=== PATIENT | female | born 1975 | race Caucasian/White ===

== ENCOUNTER 2017-01-26 10:16 | Day surgery (SDC) | payer OTHER ==
[2017-01-25 12:43] VITALS: BMI 48.4
[2017-01-26] MEDS ORDERED: LIDOCAINE HCL/PF 2% SDV 5ML VIAL ONE (11:52)
[2017-01-26] MEDS ORDERED: PROPOFOL 40 ML ONE (11:52)
[2017-01-26 12:57] VITALS: TEMP 97.5
[2017-01-26 13:57] VITALS: BP 129/72; PULSE 78
--- NOTE | 2017-01-27 13:18 | PATH ---
Surgical Pathology Report Patient Name: NANCY MARTE [facility]. Rec. #: [id number] /Age/Gender: 1975 (Age: 41) / F Account: [id number] Location: ASU-ENDOSCOPY Taken: 01/26/2017 Received: 01/26/2017 Reported: 01/27/2017 Physicians: Abraham Tejada D.O. Specimen(s) Received A: MID TRANSVERSE COLON POLYP B: BX RIGHT COLON C: BX MID TRANSVERSE COLON D: POLYPS TRANSVERSE COLON E: POLYP SPLENIC FLEXURE COLON F: POLYP DESCENDING COLON G: POLYP SIGMOID H: POLYP RECTOSIGMOID Clinical History Diarrhea Colon polyps Final Diagnosis A. 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 B. COLON, RIGHT, BIOPSY: COLONIC MUCOSA WITH REACTIVE LYMPHOID AGGREGATE AND FOCAL MILD INCREASE IN EOSINOPHILS. NO EVIDENCE OF ACTIVE INFLAMMATION, SIGINIFICANT ARCHITECTURAL DISTORTION, GRANULOMATA OR DYSPLASIA; NO EVIDENCE OF MICROSCOPIC COLITIS. C. COLON, MID TRANSVERSE, BIOPSY: COLONIC MUCOSA WITH REACTIVE LYMPHOID AGGREGATES. NO EVIDENCE OF ACTIVE INFLAMMATION, SIGINIFICANT ARCHITECTURAL DISTORTION, GRANULOMATA OR DYSPLASIA; NO EVIDENCE OF MICROSCOPIC COLITIS. D. COLON, TRANSVERSE, POLYPS, POLYPECTOMY: FRAGMENTS OF HYPERPLASTIC-TYPE POLYP WITH FEATURES OR SESSILE SERRATED ADENOMA. E. COLON, SPLENIC FLEXURE, POLYP, POLYPECTOMY: FRAGMENTS OF TUBULAR ADENOMA. F. 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 G. 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 H. 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 Electronically Signed Kennedy Han M.D. Addendum Reported: 01/31/2017 Addendum Diagnosis Part E: DNA Mismatch Repair (MMR) protein expression [facility] [place] [id number] on block E1 and interpreted [facility] shows the following: Results: hMLH-1 DNA Mismatch Repair Protein: Intact nuclear expression hMSH-2 DNA Mismatch Repair Protein: Intact nuclear expression hMSH-6 DNA Mismatch Repair Protein: Intact nuclear expression PMS2 DNA Mismatch Repair Protein: Intact nuclear expression Interpretation: No defect in DNA Mismatch Repair (MMR) protein expression is identified by IHC. This result is usually seen in MSI-H stable tumors and is not associated with HNPCC (Alaniz syndrome). The case and this result were discussed with Dr. Abraham Tejada on 01/31/17. Kennedy Han M.D. Gross Description A. Received in formalin, labeled "polyp mid transverse colon" is a storey, polypoid portion of soft tissue measuring 0.7 cm in greatest dimension. The specimen is submitted in toto in one cassette. B. Received in formalin, labeled "biopsy right colon" are 3 storey, irregular portions of soft tissue ranging from 0.1-0.2 cm in greatest dimension. The specimens are submitted in toto in one cassette. C. Received in formalin, labeled "biopsy mid transverse colon" are 2 storey, irregular portions of soft tissue averaging 0.2 cm in greatest dimension. The specimens are submitted in toto in one cassette. D. Received in formalin, labeled "polyp transverse colon" are 3 storey, irregular portions of soft tissue ranging from 0.1-0.3 cm in greatest dimension. The specimens are submitted in toto in one cassette. E. Received in formalin, labeled "polyp splenic flexure" are 2 storey, irregular portions of soft tissue measuring 0.1 and 0.2 cm in greatest dimension. The specimens are submitted in toto in one cassette. F. Received in formalin, labeled "polyp descending colon" is a storey, irregular portion of soft tissue measuring 0.2 cm in greatest dimension. The specimen is submitted in toto in one cassette. G. Received in formalin, labeled "polyp sigmoid" are 2 storey, irregular portions of soft tissue averaging 0.2 cm in greatest dimension. The specimens are submitted in toto in one cassette. H. Received in formalin, labeled "rectosigmoid polyp" is a storey, polypoid portion of soft tissue measuring 0.6 cm in greatest dimension. The specimen is submitted in toto in one cassette. 01/26/201701/26/2017
== END 2017-01-26 13:56 | disposition home or self-care (01) ==
LOC: JASU-ENDO 10:16
PROVIDERS: ATTEND Internal Medicine Gastroenterology
PROC: 0DBN8ZX Excision of Sigmoid Colon, Via Natural or Artificial Opening Endoscopic, Diagnostic (ICD-10-PCS; 2017-01-26)
PROC: 0DBF8ZX Excision of Right Large Intestine, Via Natural or Artificial Opening Endoscopic, Diagnostic (ICD-10-PCS; 2017-01-26)
PROC: 0DBL8ZX Excision of Transverse Colon, Via Natural or Artificial Opening Endoscopic, Diagnostic (ICD-10-PCS; 2017-01-26)
PROC: 0DBM8ZX Excision of Descending Colon, Via Natural or Artificial Opening Endoscopic, Diagnostic (ICD-10-PCS; 2017-01-26)
PROC: 3E0H8GC Introduction of Other Therapeutic Substance into Lower GI, Via Natural or Artificial Opening Endoscopic (ICD-10-PCS; 2017-01-26)
PROC: 0DBL8ZX Excision of Transverse Colon, Via Natural or Artificial Opening Endoscopic, Diagnostic (ICD-10-PCS; principal; 2017-01-26 11:30)
DX: D12.7 Benign neoplasm of rectosigmoid junction (principal); D12.5 Benign neoplasm of sigmoid colon; D12.4 Benign neoplasm of descending colon; K63.5 Polyp of colon; D12.3 Benign neoplasm of transverse colon; K64.8 Other hemorrhoids; R19.7 Diarrhea, unspecified
CPT/HCPCS: 84703; 88305-TC

== ENCOUNTER 2017-12-05 08:35 | Day surgery (SDC) | payer OTHER ==
[2017-11-27 12:30] VITALS: BMI 47.3
[2017-12-05 09:37] LABS: BASO % 1.3 % (0-2.0); EOS % 3.5 % (0-4.5); HEMATOCRIT 39.7 % (32.4-45.2); LYMPH % 30.2 % (8-40); MCH 30.3 pg (25.7-33.7); MCHC 32.8 g/dl (32.0-36.0); MEAN CELL VOLUME 92.4 fl (80-96); MONO % 5.1 % (3.8-10.2); NEUT % 59.9 % (42.8-82.8); PLATELET COUNT 437 K/MM3 (134-434); RBC 4.29 M/mm3 (3.60-5.2); RDW 13.5 % (11.6-15.6); WHITE BLOOD COUNT 10.3 K/mm3 (4.0-10.0)
[2017-12-05 09:40] VITALS: TEMP 97.8
[2017-12-05 10:05] LABS: INR 0.97 (0.82-1.09)
[2017-12-05 13:17] LABS: GLUCOSE,CSF 63 mg/dL (50-80)
[2017-12-05 13:37] LABS: CSF APPEARANCE CLEAR; CSF COLOR COLORLESS; CSF WBC 0
[2017-12-05 14:37] VITALS: BP 110/67; PULSE 71
== END 2017-12-05 14:30 | disposition home or self-care (01) ==
LOC: JRADIR 08:35
PROVIDERS: ATTEND Specialist
PROC: 009U3ZX Drainage of Spinal Canal, Percutaneous Approach, Diagnostic (ICD-10-PCS; 2017-12-05)
PROC: B01BYZZ Fluoroscopy of Spinal Cord using Other Contrast (ICD-10-PCS; 2017-12-05)
PROC: 009U3ZX Drainage of Spinal Canal, Percutaneous Approach, Diagnostic (ICD-10-PCS; principal; 2017-12-05 10:00)
DX: R51 Headache (principal)
CPT/HCPCS: 36415; 62272; 82945; 84157; 84703; 85025; 85610; 87070; 87205

== ENCOUNTER 2018-10-01 20:13 | Emergency (ER) | payer OTHER ==
[2018-10-01 20:19] VITALS: PULSE 92; TEMP 98.7; BMI 49.6
--- NOTE | 2018-10-01 20:23 | PDOC ---
Rapid Medical Evaluation Chief Complaint: Lightheaded Time Seen by Provider: 10/01/18 20:17 Medical Evaluation: Allergies Allergy/AdvReac Type Severity Reaction Status Date / Time cat dander Allergy Intermediate Itching Verified 10/01/18 20:17 10/01/18 20:17 I have performed a brief in-person evaluation of this patient. The patient presents with a chief complaint of: dizziness/ lightheaded - started this AM , was coming and going but stronger now, denies fevers, palpitations or chestpain but c/o pins and needles to left arm. , Pertinent physical exam findings: A and O x 3, Ekg I have ordered the following: EKG The patient will proceed to the ED for further evaluation. 10/01/18 20:21 Discharge Disposition - Diagnosis Dizziness - Referrals - Patient Instructions - Post Discharge Activity
--- NOTE | 2018-10-01 20:31 | PDOC ---
History of Present Illness - General Chief Complaint: Lightheaded Stated Complaint: Chest Pain Time Seen by Provider: 10/01/18 20:17 - History of Present Illness Initial Comments: 10/01/18 20:30 Ms. Coker is a 43 yo female w/ pmh of HTN, migraines, and "elevated brain pressure" for which she is evaluated by neurology and treated with water pill who presents for evaluation of 1 week history of multiple episodes of nausea/ vomiting with diarrhea and fevers/chills. Patient reports symptoms stopped yesterday however today she began to have some dizziness with left sided chest pain with associated left arm parasthesias. The patient denies shortness of breath and headache. Denies dysuria, frequency, urgency and hematuria. Past History - Past Medical History Allergies/Adverse Reactions: Allergies Allergy/AdvReac Type Severity Reaction Status Date / Time cat dander Allergy Intermediate Itching Verified 10/01/18 20:17 No Known Drug Allergies Allergy Verified 10/01/18 20:47 Home Medications: Ambulatory Orders Amlodipine Besylate 10 mg PO DAILY 11/27/17 BUPROPion HCL "SR" [Wellbutrin Sr [Nf]] 150 mg PO BID 11/27/17 Diphenhydramine HCl [Benadryl -] 25 mg PO Q6H PRN 11/27/17 Nadolol 40 mg PO BID 11/27/17 Topiramate [Trokendi Xr] 100 mg PO BID 11/27/17 acetaZOLAMIDE [Diamox -] 1,500 mg PO DAILY 10/01/18 COPD: No Disorders: No HTN: Yes Thyroid Disease: No Other medical history: ?hydrocephalus - Surgical History Cholecystectomy: Yes - Suicide/Smoking/Psychosocial Hx Smoking History: Never smoked Have you smoked in the past 12 months: No Hx Alcohol Use: Yes (SOCIAL) Drug/Substance Use Hx: No Substance Use Type: None Hx Substance Use Treatment: No Review of Systems - Review of Systems Comments:: 10/01/18 20:32 GENERAL/CONSTITUTIONAL: +Fever/chills now resolved. No weakness. HEAD, EYES, EARS, NOSE AND THROAT: No change in vision. No ear pain or discharge. No sore throat. CARDIOVASCULAR: +Left sided chest pain w/out shortness of breath RESPIRATORY: No cough, wheezing, or hemoptysis. GASTROINTESTINAL: +1 week of nausea/vomiting/diarrhea as described (now resolved ). GENITOURINARY: No dysuria, frequency, or change in urination. MUSCULOSKELETAL: No joint or muscle swelling or pain. No neck or back pain. SKIN: No rash NEUROLOGIC: No headache, vertigo, loss of consciousness, or change in strength/ sensation. ENDOCRINE: No increased thirst. No abnormal weight change HEMATOLOGIC/LYMPHATIC: No anemia, easy bleeding, or history of blood clots. ALLERGIC/IMMUNOLOGIC: No hives or skin allergy. *Physical Exam - Vital Signs Last Vital Signs Temp Pulse Resp BP Pulse Ox 98.7 F 92 H 18 165/78 98 10/01/18 20:17 10/01/18 20:17 10/01/18 20:17 10/01/18 20:17 10/01/18 20:17 - Physical Exam Comments: 10/01/18 20:32 GENERAL: +Patient obese. Awake, alert, and fully oriented, in no acute distress HEAD: No signs of trauma, normocephalic, atraumatic EYES: PERRLA, EOMI, sclera anicteric, conjunctiva clear ENT: Auricles normal inspection, hearing grossly normal, nares patent, oropharynx clear without exudates. Moist mucosa NECK: Normal ROM, supple, no lymphadenopathy, JVD, or masses LUNGS: +Left chest wall TTP. No distress, speaks full sentences, clear to auscultation bilaterally HEART: Regular rate and rhythm, normal S1 and S2, no murmurs, rubs or gallops, peripheral pulses normal and equal bilaterally. ABDOMEN: +Nonspecific abdominal TTP. Soft, normoactive bowel sounds. No guarding , no rebound. No masses EXTREMITIES: Normal inspection, Normal range of motion, no edema. No clubbing or cyanosis. NEUROLOGICAL: Cranial nerves II through XII grossly intact. Normal speech, normal gait, no focal sensorimotor deficits SKIN: Warm, Dry, normal turgor, no rashes or lesions noted. Moderate Sedation - Procedure Monitoring Vital Signs: Procedure Monitoring Vital Signs Temperature 98.7 F 10/01/18 20:17 Pulse Rate 92 H 10/01/18 20:17 Respiratory Rate 18 10/01/18 20:17 Blood Pressure 165/78 10/01/18 20:17 O2 Sat by Pulse Oximetry (%) 98 10/01/18 20:17 ED Treatment Course - LABORATORY CBC & Chemistry Diagram: 10/01/18 21:15 10/01/18 21:15 Medical Decision Making - Medical Decision Making 10/01/18 22:46 Ms. Coker is a 43 yo female w/ pmh as described who presents for evaluation of symptoms concerning for electrolyte abnormality vs. cardiac process. Workup started accordingly w/ electrolytes plus CBC to r/o infectious process. Urine likewise sent postive for UTI as below. CXR negative. EKG normal. Patient denies needing pain medication at this time. No other concerning findings at this time. Patient remains tender in LUQ abdomen. CT abdomen/pelvis ordered for further evaluation. 10/01/18 23:35 Patient signed out to Dr. England for further care. Laboratory Results - last 24 hr 10/01/18 10/01/18 10/01/18 20:30 21:15 21:15 WBC 8.8 RBC 4.26 Hgb 13.2 Hct 38.6 MCV 90.6 MCH 31.0 MCHC 34.2 RDW 14.5 Plt Count 443 H MPV 7.9 D Absolute Neuts (auto) 5.1 Neutrophils % 57.7 Lymphocytes % 30.7 Monocytes % 8.3 Eosinophils % 2.5 Basophils % 0.8 Nucleated RBC % 0 Sodium 140 Potassium 4.3 Chloride 102 Carbon Dioxide 31 Anion Gap 8 BUN 9 Creatinine 1.0 Creat Clearance w eGFR > 60 Random Glucose 92 Calcium 8.3 L Total Bilirubin 0.6 AST 23 ALT 44 Alkaline Phosphatase 80 Creatine Kinase 55 Troponin I < 0.02 Total Protein 7.2 Albumin 3.1 L Urine Color Aggie Urine Appearance Cloudy Urine pH 6.0 Ur Specific [place] 1.028 Urine Protein 1+ H Urine Glucose (UA) Negative Urine Ketones Negative Urine Blood Negative Urine Nitrite Negative Urine Bilirubin Negative Urine Urobilinogen Negative Ur Leukocyte Esterase 2+ H Urine WBC (Auto) 17 Urine RBC (Auto) None Ur Epithelial Cells Many Urine Bacteria Rare Urine Mucus Moderate Urine HCG, Qual Negative *DC/Admit/Observation/Transfer Diagnosis at time of Disposition: Dizziness, Vomiting and diarrhea - Referrals - Patient Instructions - Post Discharge Activity
--- NOTE | 2018-10-01 20:34 | PDOC ---
Attending Attestation - Resident Resident Name: Carlton Ya - ED Attending Attestation I have performed the following: I have examined & evaluated the patient, The case was reviewed & discussed with the resident, I agree w/resident's findings & plan, Exceptions are as noted - HPI HPI: 10/02/18 20:47 Ms Coker is a 43 yo female w/ pmh of HTN, idiopathic intracranial hypertension who presents to the ER with a complaint of dizziness and chest pain Pt had had nausea/vomiting/diarrhea/fevers/chills x almost 1 week No recent travel No ill contacts No under cooked meat. GI symptoms stopped but then today around noon, she began to have dizziness (no vertigo) as well as left chest wall pain with associated left arm parasthesias Pain worsens with palpation of the chest wall No rash No cough No shortness of breath Pt has NO ataxia or difficulty walking She has no headaches No prior episodes like this No dysuria, no hematuria - Physicial Exam PE: 10/01/18 20:52 GENERAL: The patient is in no acute distress, A&O x 3 HEAD: Normal EYES: PERRLA, EOMI, sclera anicteric, conjunctiva clear. ENT: Ears normal, nares patent, oropharynx clear without exudates. Moist mucous membranes. NECK: Normal range of motion, supple without lymphadenopathy, JVD, or masses. LUNGS: Breath sounds equal, clear to auscultation bilaterally. No wheezes, and no crackles. HEART:Regular rate and rhythm, normal S1 and S2 without murmur, rub or gallop. ABDOMEN: Soft, no abd distention, LLQ tenderness to palpation EXTREMITIES: Normal range of motion, no edema. NEUROLOGICAL: Cranial nerves II through XII grossly intact. Normal speech. No focal neurological deficits. MUSCULOSKELETAL: Back non-tender to palpation, left chest wall tender to palpation SKIN: no rash - Medical Decision Making 10/01/18 20:55 EKG - SR rate of 77 bpm, axis nml, no st elevation, t wave flattening v2, v3, no pathologic q waves No prior ekg for comparison 10/01/18 20:57 Pt presents with complaint of chest pain, dizziness s/p 1 week of diarrhea and vomiting HEART score = 2 DD includes ACS (unlikely), PE (unlikely, low risk wells, PERC negative), Pneumonia, Pleurisy/effusion, musculoskeletal Mild LLQ tenderness (pt has had diarrhea for the past week, ? diverticulitis vs. Gastroenteritis - given vomiting as well) 10/01/18 20:59 10/01/18 21:32 Laboratory Tests 10/01/18 20:30 Urine Nitrite Negative Ur Leukocyte Esterase 2+ H Urine WBC (Auto) 17 Urine RBC (Auto) None Ur Epithelial Cells Many Urine HCG, Qual Negative 10/01/18 22:22 Laboratory Tests 10/01/18 21:15 WBC 8.8 Hgb 13.2 Hct 38.6 Plt Count 443 H 10/01/18 22:22 CXR - no pneumothorax, no effusion, cardiomediastinal silhouette nml Pt continued to have mild lower abdominal tenderness Chest wall pain has resolved CT abd and pelvis ordered Negative for colitis Will discharge to home Urine culture sent Will discharge to home Follow up with PMD Heart Score/ECG Review - History History: Slightly suspicious - Electrocardiogram EKG: Non specific repolarization disturbance - Age Age: </= 45 - Risk Factors Risk Factors Heart Score: Yes Hx Hypertension, Yes Hx Obesity Based on the list above the patient has:: 1-2 risk factors - Troponin Troponin: </= normal limit - Score Heart Score - Total: 2
[2018-10-01 20:56] LABS: URINE APPEARANCE CLOUDY; URINE BILIRUBIN NEGATIVE (<2.0 mg/dL); URINE COLOR AMBER; URINE GLUCOSE (UA) NEGATIVE (NEGATIVE); URINE KETONE NEGATIVE (NEGATIVE); URINE LEUK ESTERASE 2+ (NEGATIVE); URINE NITRITE NEGATIVE (NEGATIVE); URINE PROTEIN 1+ (NEGATIVE); URINE UROBILINOGEN NEGATIVE mg/dL (0.2-1.0)
[2018-10-01] MEDS ORDERED: ASPIRIN 81 MG CHEWABLE TABLETS PO ONE (20:56)
[2018-10-01] MEDS ORDERED: SODIUM CHLORIDE 1,000 ML IV STA (20:56)
[2018-10-01 20:57] LABS: HCG,QUALITATIVE URINE Negative
[2018-10-01] MEDS ORDERED: ASPIRIN 81 MG CHEWABLE TABLETS ONE (20:58)
[2018-10-01 21:12] LABS: EPI CELLS MANY /HPF (FEW); URINE BACTERIA RARE /hpf (NONE SEEN); URINE MUCUS MODERATE
[2018-10-01 21:47] LABS: BASO % 0.8 % (0-2.0); EOS % 2.5 % (0-4.5); HEMATOCRIT 38.6 % (32.4-45.2); HEMOGLOBIN 13.2 GM/dL (10.7-15.3); LYMPH % 30.7 % (8-40); MCHC 34.2 g/dl (32.0-36.0); MEAN CELL VOLUME 90.6 fl (80-96); MEAN PLT VOLUME 7.9 fl (7.5-11.1); MONO % 8.3 % (3.8-10.2); NEUT % 57.7 % (42.8-82.8); PLATELET COUNT 443 K/MM3 (134-434); RBC 4.26 M/mm3 (3.60-5.2); RDW 14.5 % (11.6-15.6); WHITE BLOOD COUNT 8.8 K/mm3 (4.0-10.0)
[2018-10-01 22:37] LABS: ALBUMIN 3.1 g/dl (3.4-5.0); ALK PHOS 80 U/L (45-117); ANION GAP 8 MMOL/L (8-16); BILIRUBIN,TOTAL 0.6 mg/dL (0.2-1); BLOOD UREA NITROGEN 9 mg/dL (7-18); CALCIUM 8.3 mg/dL (8.5-10.1); CHLORIDE 102 mmol/L (98-107); CO2 31 mmol/L (21-32); GLUCOSE,RANDOM 92 mg/dL (74-106); POTASSIUM 4.3 mmol/L (3.5-5.1); SGOT/AST 23 U/L (15-37); SGPT/ALT 44 U/L (13-61); SODIUM 140 mmol/L (136-145); TOT PROT 7.2 g/dl (6.4-8.2)
[2018-10-01 23:16] VITALS: BP 130/82
--- NOTE | 2018-10-02 00:30 | PDOC ---
*Physical Exam - Vital Signs Last Vital Signs Temp Pulse Resp BP Pulse Ox 98.7 F 92 H 18 130/82 98 10/01/18 20:17 10/01/18 20:17 10/01/18 20:17 10/01/18 20:53 10/01/18 20:53 ED Treatment Course - LABORATORY CBC & Chemistry Diagram: 10/01/18 21:15 10/01/18 21:15 - ADDITIONAL ORDERS Additional order review: Laboratory Results 10/01/18 10/01/18 21:15 20:30 Sodium 140 Potassium 4.3 Chloride 102 Carbon Dioxide 31 Anion Gap 8 BUN 9 Creatinine 1.0 Creat Clearance w eGFR > 60 Random Glucose 92 Calcium 8.3 L Total Bilirubin 0.6 AST 23 ALT 44 Alkaline Phosphatase 80 Creatine Kinase 55 Troponin I < 0.02 Total Protein 7.2 Albumin 3.1 L Urine Color Aggie Urine Appearance Cloudy Urine pH 6.0 Ur Specific [place] 1.028 Urine Protein 1+ H Urine Glucose (UA) Negative Urine Ketones Negative Urine Blood Negative Urine Nitrite Negative Urine Bilirubin Negative Urine Urobilinogen Negative Ur Leukocyte Esterase 2+ H Urine WBC (Auto) 17 Urine RBC (Auto) None Ur Epithelial Cells Many Urine Bacteria Rare Urine Mucus Moderate Urine HCG, Qual Negative 10/01/18 21:15 RBC 4.26 MCV 90.6 MCHC 34.2 RDW 14.5 MPV 7.9 D Neutrophils % 57.7 Lymphocytes % 30.7 Monocytes % 8.3 Eosinophils % 2.5 Basophils % 0.8 - Medications Given in the ED: ED Medications Discontinued Medications Generic Name Dose Route Start Last Admin Trade Name Freq PRN Reason Stop Dose Admin Aspirin 162 mg 10/01/18 20:56 10/01/18 21:23 Asa - PO 10/01/18 20:57 162 mg ONCE ONE Administration Sodium Chloride 1,000 mls @ 1,000 mls/hr 10/01/18 20:56 10/01/18 21:23 Normal Saline - IV 10/01/18 21:55 1,000 mls/hr ASDIR STA Administration Medical Decision Making - Medical Decision Making 10/02/18 00:27 UA tainted with many epithelial cells. Will obtain u culture and discharge. *DC/Admit/Observation/Transfer Diagnosis at time of Disposition: Dizziness, Vomiting and diarrhea - Discharge Dispostion Disposition: HOME Condition at time of disposition: Improved Decision to Admit order: No - Referrals Schedule a call back: Call back if urine culture positive. - Patient Instructions Printed Discharge Instructions: DI for Viral Gastroenteritis -- Adult Additional Instructions: Follow up with your primary care provider within the next 4 days. Come back to the emergency department for any new, worsening or concerning symptom. - Post Discharge Activity
--- NOTE | 2018-10-02 17:02 | EKG ---
Test Reason : Blood Pressure : / mmHG Vent. Rate : 077 BPM Atrial Rate : 077 BPM P-R Int : 142 ms QRS Dur : 070 ms QT Int : 382 ms P-R-T Axes : 050 -01 035 degrees QTc Int : 432 ms NORMAL SINUS RHYTHM CANNOT RULE OUT INFERIOR INFARCT , AGE UNDETERMINED CANNOT RULE OUT ANTERIOR INFARCT , AGE UNDETERMINED ABNORMAL ECG Confirmed by MD KAJAL, JENN ([id number]) on 10/02/2018 5:02:02 PM Referred By: Confirmed By:JENN RDZ MD
== END 2018-10-02 01:03 | disposition home or self-care (01) ==
LOC: JER 20:13
PROC: 3E0337Z Introduction of Electrolytic and Water Balance Substance into Peripheral Vein, Percutaneous Approach (ICD-10-PCS; principal; 2018-10-01)
DX: R11.10 Vomiting, unspecified (principal); R19.7 Diarrhea, unspecified; R42 Dizziness and giddiness; I10 Essential (primary) hypertension
CPT/HCPCS: 36415; 71046-TC-FY; 74177-TC; 80053; 81003; 81015; 82550; 84484; 84703; 85025; 87086; 93005; 93010; 99285-25; J7030

== ENCOUNTER 2019-08-01 18:27 | Emergency (ER) | payer OTHER ==
[2019-08-01 18:39] VITALS: BP 122/87; PULSE 105; TEMP 98.4; BMI 36.7
--- NOTE | 2019-08-01 18:39 | PDOC ---
Rapid Medical Evaluation Chief Complaint: Back Pain Time Seen by Provider: 08/01/19 18:35 Medical Evaluation: Allergies Allergy/AdvReac Type Severity Reaction Status Date / Time cat dander Allergy Intermediate Itching Verified 10/01/18 20:17 No Known Drug Allergies Allergy Verified 10/01/18 20:47 08/01/19 18:37 I have performed a brief in-person evaluation of this patient. The patient presents with a chief complaint of: consatant right flank pain with no fevers, Increased fatigue, mild dysuria/frequency. No vag/ bowel complaints. + kidney stone 10years ago right side. Pertinent physical exam findings: + CVAT right. abd soft I have ordered the following: UA/ Ucx/ UcG The patient will proceed to the ED for further evaluation. Discharge Disposition - Diagnosis Dysuria - Discharge Dispostion Condition at time of disposition: Stable - Referrals - Patient Instructions - Post Discharge Activity
[2019-08-01 19:09] LABS: EPI CELLS >36 /HPF (0-5/HPF); HYALINE CASTS 78 /lpf (0-8); PH,URINE 7.5 (5.0-8.0); URINE APPEARANCE TURBID; URINE BACTERIA 3877.3 /hpf (NEGATIVE); URINE BILIRUBIN NEGATIVE (NEGATIVE); URINE COLOR DK YELLOW; URINE GLUCOSE (UA) NEGATIVE (NEGATIVE); URINE KETONE TRACE (NEGATIVE); URINE LEUK ESTERASE 1+ (NEGATIVE); URINE NITRITE NEGATIVE (NEGATIVE); URINE PROTEIN 1+ (NEGATIVE); URINE RBC 2 /hpf (0-4); URINE WBC 76 /hpf (0-5)
[2019-08-01] MEDS ORDERED: KETOROLAC TROMETHAMINE 60 MG/2 ML VIAL IM ONE (19:16)
[2019-08-01] MEDS ORDERED: KETOROLAC TROMETHAMINE 60 MG/2 ML VIAL ONE (19:18)
--- NOTE | 2019-08-01 19:31 | PDOC ---
History of Present Illness - General Chief Complaint: Pain, Acute Stated Complaint: BACK PAIN Time Seen by Provider: 08/01/19 18:35 History Source: Patient Exam Limitations: No Limitations Past History - Past Medical History Allergies/Adverse Reactions: Allergies Allergy/AdvReac Type Severity Reaction Status Date / Time cat dander Allergy Intermediate Itching Verified 10/01/18 20:17 No Known Drug Allergies Allergy Verified 10/01/18 20:47 Home Medications: Ambulatory Orders Amlodipine Besylate 10 mg PO DAILY 11/27/17 BUPROPion HCL "SR" [Wellbutrin Sr [Nf]] 150 mg PO BID 11/27/17 Diphenhydramine HCl [Benadryl -] 25 mg PO Q6H PRN 11/27/17 Nadolol 40 mg PO BID 11/27/17 Topiramate [Trokendi Xr] 100 mg PO BID 11/27/17 acetaZOLAMIDE [Diamox -] 1,500 mg PO DAILY 10/01/18 COPD: No Disorders: No HTN: Yes Thyroid Disease: No - Surgical History Cholecystectomy: Yes - Immunization History Immunization Up to Date: No - Psycho Social/Smoking Cessation Hx Smoking History: Never smoked Have you smoked in the past 12 months: No Information on smoking cessation initiated: No Hx Alcohol Use: No Drug/Substance Use Hx: No Substance Use Type: None Hx Substance Use Treatment: No *Physical Exam - Vital Signs Last Vital Signs Temp Pulse Resp BP Pulse Ox 98.4 F 105 H 16 122/87 97 08/01/19 18:37 08/01/19 18:37 08/01/19 18:37 08/01/19 18:37 08/01/19 18:37 - Physical Exam General Appearance: No: Apparent Distress Respiratory/Chest: positive: Lungs Clear, Normal Breath Sounds. negative: Respiratory Distress Cardiovascular: positive: Regular Rhythm, Regular Rate, S1, S2. negative: Murmur Musculoskeletal: positive: CVA Tenderness (R). negative: CVA Tenderness (L), Muscle Spasm, Vertebral Tenderness Neurologic: positive: Alert, Normal Mood/Affect ED Treatment Course - ADDITIONAL ORDERS Additional order review: Laboratory Results 08/01/19 08/01/19 18:47 18:47 Urine Color Dk yellow Urine Appearance Turbid Urine pH 7.5 D Ur Specific [place] 1.028 Urine Protein 1+ H Urine Glucose (UA) Negative Urine Ketones Trace H Urine Blood Negative Urine Nitrite Negative Urine Bilirubin Negative Urine Urobilinogen 1.0 Ur Leukocyte Esterase 1+ H Urine WBC (Auto) 76 Urine RBC (Auto) 2 Urine Casts (Auto) 78 U Epithel Cells (Auto) >36 Urine Bacteria (Auto) 3877.3 Urine HCG, Qual Negative - RADIOLOGY Radiology Studies Ordered: Category Date Time Status SPIRAL- RENAL-STONE CT [CT] Stat CT Scan 08/01/19 19:15 Ordered - Medications Given in the ED: ED Medications Discontinued Medications Generic Name Dose Route Start Last Admin Trade Name Terrence PRN Reason Stop Dose Admin Ketorolac Tromethamine 60 mg 08/01/19 19:16 08/01/19 19:22 Toradol Injection - IM 08/01/19 19:17 60 mg ONCE ONE Administration Medical Decision Making - Medical Decision Making 43 y/o F hx of kidney stone 10 years ago (passed on its own) presents with R flank pain from 1.5 weeks ago; initially the pain went away but then came back 4 days ago and has been constant in nature. Has not noted anything that makes pain worse. Tried Advil without much alleviation of pain. States pain feels somewhat similar to her prior kidney stone in the past. +nausea Denies fever, sob, cp, abd pain, vomiting, diarrhea, dysuria, hematuria. Hx of cholecystectomy at age 20 and gastric sleeve 12/2018. R/O kidney stones UCG negative Urine reviewed - likely contaminated given large amount of epithelial cells; will defer tx for asymptomatic bacteriuria Sent for spiral CT A/P, given Toradol for pain 08/01/19 19:[address] negative Patient feeling better after Toradol Possible MSK pain stable for dc 08/01/19 20:05 Discharge - Discharge Information Problems reviewed: Yes Clinical Impression/Diagnosis: Flank pain Condition: Improved Disposition: HOME - Admission No - Additional Discharge Information Prescription Drug Monitoring Program (I-STOP) results: I-STOP not reviewed - Follow up/Referral Referrals: Christopher Abdi MD [Primary Care Provider] - 2 Days - Patient Discharge Instructions Patient Printed Discharge Instructions: DI for Flank Pain Additional Instructions: Thank you for choosing [facility]. It was a pleasure taking care of you. Your CT scan showed no kidney stones. Possibly this is musculoskeletal pain You may take Motrin 600 mg every 6 hours by mouth as needed for mild to moderate pain. Take Motrin with food. Follow-up with your doctor in 2 days Return to the Emergency Department if your symptoms worsen or persist, you have fever, shortness of breath, chest pain, severe abdominal pain, vomiting or other concerning symptoms. - Post Discharge Activity
== END 2019-08-01 20:27 | disposition home or self-care (01) ==
LOC: JER 18:27
PROC: 3E0233Z Introduction of Anti-inflammatory into Muscle, Percutaneous Approach (ICD-10-PCS; principal; 2019-08-01)
DX: R10.31 Right lower quadrant pain (principal); Z87.442 Personal history of urinary calculi; Z91.09 Other allergy status, other than to drugs and biological substances
CPT/HCPCS: 74176-TC; 81003; 84703; 87086; 99282-25

== ENCOUNTER 2019-08-19 18:21 | Emergency (ER) | payer OTHER ==
[2019-08-19 18:34] VITALS: BP 98/67; PULSE 75; TEMP 98.3; BMI 37.2
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
== END 2019-08-19 20:09 | disposition home or self-care (01) ==
LOC: JERFT 18:21
DX: T24.222A Burn of second degree of left knee, initial encounter (principal); X16.XXXA Contact with hot heating appliances, radiators and pipes, initial encounter; Y93.89 Activity, other specified; Y92.038 Other place in apartment as the place of occurrence of the external cause; Y99.8 Other external cause status; I10 Essential (primary) hypertension; Z91.048 Other nonmedicinal substance allergy status
CPT/HCPCS: 99281-25

== ENCOUNTER 2020-09-06 20:54 | Emergency (ER) | payer OTHER ==
[2020-09-06 21:01] VITALS: TEMP 98.7; BMI 31.6
[2020-09-06] MEDS ORDERED: METOCLOPRAMIDE HCL INJECTION 10 MG/2 ML VIAL IVPB ONE (21:51)
[2020-09-06] MEDS ORDERED: ACETAMINOPHEN 1000 MG/100 ML VIAL (NON FORMULARY) IVPB ONE (22:01)
[2020-09-06] MEDS ORDERED: METOCLOPRAMIDE HCL INJECTION 10 MG/2 ML VIAL ONE (22:23)
[2020-09-06 22:38] LABS: BASO % 1.4 % (0-2.0); HEMATOCRIT 34.6 % (32.4-45.2); HEMOGLOBIN 11.4 GM/dL (10.7-15.3); LYMPH % 38.4 % (8-40); MCH 32.6 pg (25.7-33.7); MEAN CELL VOLUME 98.9 fl (80-96); MEAN PLT VOLUME 7.8 fl (7.5-11.1); NEUT % 52.2 % (42.8-82.8); PLATELET COUNT 344 K/MM3 (134-434); RDW 17.4 % (11.6-15.6); WHITE BLOOD COUNT 6.5 K/mm3 (4.0-10.0)
[2020-09-06 23:00] LABS: POTASSIUM 4.2 mmol/L (3.5-5.1)
[2020-09-06 23:02] LABS: BLOOD UREA NITROGEN 19.7 mg/dL (7-18); CALCIUM 8.4 mg/dL (8.5-10.1)
[2020-09-06 23:06] LABS: CREATININE 0.8 mg/dL (0.55-1.3)
[2020-09-06 23:07] LABS: BILIRUBIN,TOTAL 0.9 mg/dL (0.2-1); TOT PROT 6.6 g/dl (6.4-8.2)
[2020-09-07 03:11] VITALS: BP 135/80; PULSE 74
== END 2020-09-07 03:11 | disposition home or self-care (01) ==
LOC: JER 20:54
PROC: 3E0333Z Introduction of Anti-inflammatory into Peripheral Vein, Percutaneous Approach (ICD-10-PCS; principal; 2020-09-06)
PROC: 3E033GC Introduction of Other Therapeutic Substance into Peripheral Vein, Percutaneous Approach (ICD-10-PCS; 2020-09-06)
PROC: 3E033GC Introduction of Other Therapeutic Substance into Peripheral Vein, Percutaneous Approach (ICD-10-PCS; 2020-09-06)
DX: R51.9 Headache, unspecified (principal)
CPT/HCPCS: 36415; 70496-TC; 80053; 84703; 85025; 99284-25; J0131; Q9967

== ENCOUNTER 2022-08-10 16:41 | Observation (INO) | payer OTHER ==
[2022-08-10 16:54] VITALS: BMI 32.0
[2022-08-10] MEDS ORDERED: ACETAMINOPHEN 1000 MG/100 ML BAG IVPB ONE (18:26)
[2022-08-10] MEDS ORDERED: METOCLOPRAMIDE HCL INJECTION 10 MG/2 ML VIAL IVPB ONE (18:26)
[2022-08-10] MEDS ORDERED: SODIUM CHLORIDE 1,000 ML IV STA (18:26)
[2022-08-10] MEDS ORDERED: ACETAMINOPHEN INJECTION 100 ML IVPB ONE (18:29)
[2022-08-10] MEDS ORDERED: METOCLOPRAMIDE HCL INJECTION 10 MG/2 ML VIAL ONE (18:29)
[2022-08-10 18:47] LABS: BASO % 1.3 % (0-2.0); EOS % 2.4 % (0-4.5); HEMATOCRIT 28.1 % (32.4-45.2); HEMOGLOBIN 8.8 GM/dL (10.7-15.3); LYMPH % 25.8 % (8-40); MCHC 31.1 g/dl (32.0-36.0); MEAN CELL VOLUME 73.9 fl (80-96); MEAN PLT VOLUME 7.4 fl (7.5-11.1); MONO % 10.3 % (3.8-10.2); NEUT % 60.2 % (42.8-82.8); PLATELET COUNT 400 10^3/uL (134-434); RBC 3.81 M/mm3 (3.60-5.2); RDW 19.9 % (11.6-15.6); WHITE BLOOD COUNT 4.9 K/mm3 (4.0-10.0)
[2022-08-10 19:02] LABS: INR 1.08 (0.83-1.09); PROTHROMBIN TIME (PATIENT) 12.4 SEC (9.7-13.0)
[2022-08-10 19:06] LABS: ALBUMIN 3.5 g/dl (3.4-5.0); BLOOD UREA NITROGEN 14.6 mg/dL (7-18); CALCIUM 9.1 mg/dL (8.5-10.1)
[2022-08-10 19:10] LABS: CREATININE 0.7 mg/dL (0.55-1.3)
[2022-08-10 19:12] LABS: BILIRUBIN,TOTAL 0.7 mg/dL (0.2-1); TOT PROT 7.6 g/dl (6.4-8.2)
[2022-08-10] MEDS ORDERED: ACETAMINOPHEN/CAFFEINE/BUTALBITAL 1 TAB PO ONE (21:50)
[2022-08-10] MEDS ORDERED: ACETAMINOPHEN/CAFFEINE/BUTALBITAL 1 TAB ONE (22:17)
[2022-08-10 22:57] LABS: MAGNESIUM 2.1 mg/dL (1.8-2.4)
[2022-08-10 23:03] LABS: RETICULOCYTES 1.25 % (0.5-1.5)
[2022-08-11] MEDS ORDERED: SUMAtriptan SUCCINATE 50 MG TABLET PO ONE (04:00)
[2022-08-11] MEDS ORDERED: SUMAtriptan SUCCINATE 50 MG TABLET ONE (04:57)
[2022-08-11] MEDS ORDERED: ENOXAPARIN NA (PORCINE) 40 MG/0.4 ML DISP.SYRIN SQ SCH (10:00)
[2022-08-11 10:55] LABS: METHADONE, UR NEGATIVE (NEGATIVE)
[2022-08-11 10:56] LABS: COCAINE, UR NEGATIVE (NEGATIVE); OPIATES, URI NEGATIVE (NEGATIVE)
[2022-08-11 10:58] LABS: PHENCYCLIDINE,URINE NEGATIVE (NEGATIVE)
[2022-08-11 11:07] LABS: URINE AMPHETAMINES NEGATIVE (NEGATIVE); URINE BARBITURATES POSITIVE (NEGATIVE); URINE BENZODIAZEPINES NEGATIVE (NEGATIVE)
[2022-08-11] MEDS ORDERED: ENOXAPARIN NA (PORCINE) 40 MG/0.4 ML DISP.SYRIN SQ ONE (11:58)
[2022-08-11] MEDS ORDERED: ACETAMINOPHEN 1000 MG/100 ML BAG IVPB PRN (12:32)
[2022-08-11] MEDS ORDERED: METOCLOPRAMIDE HCL INJECTION 10 MG/2 ML VIAL IVPUSH PRN (12:33)
[2022-08-11 12:46] LABS: BASO % 0.5 % (0-2.0); EOS % 2.1 % (0-4.5); HEMATOCRIT 25.6 % (32.4-45.2); HEMOGLOBIN 7.9 GM/dL (10.7-15.3); LYMPH % 37.1 % (8-40); MEAN CELL VOLUME 74.2 fl (80-96); MEAN PLT VOLUME 7.7 fl (7.5-11.1); MONO % 10.7 % (3.8-10.2); NEUT % 49.6 % (42.8-82.8); PLATELET COUNT 392 10^3/uL (134-434); RBC 3.45 M/mm3 (3.60-5.2); RDW 19.7 % (11.6-15.6); WHITE BLOOD COUNT 5.5 K/mm3 (4.0-10.0)
[2022-08-11 13:21] LABS: CALCIUM 8.8 mg/dL (8.5-10.1)
[2022-08-11 13:22] LABS: ALBUMIN 3.2 g/dl (3.4-5.0); BLOOD UREA NITROGEN 11.9 mg/dL (7-18); MAGNESIUM 2.2 mg/dL (1.8-2.4)
[2022-08-11 13:24] LABS: CREATININE 0.6 mg/dL (0.55-1.3); PHOSPHOROUS 3.3 mg/dL (2.5-4.9)
[2022-08-11 13:25] LABS: BILIRUBIN,TOTAL 0.8 mg/dL (0.2-1); TOT PROT 6.9 g/dl (6.4-8.2)
[2022-08-11] MEDS ORDERED: SUMATRIPTAN SUCCINATE 6 MG/0.5 ML VIAL SQ ONE (16:54)
[2022-08-11] MEDS ORDERED: ACETAMINOPHEN INJECTION 100 ML IVPB ONE (17:14)
[2022-08-11] MEDS ORDERED: SUMATRIPTAN SUCCINATE 6 MG/0.5 ML VIAL ONE (17:20)
[2022-08-12 07:46] LABS: BASO % 0.9 % (0-2.0); EOS % 2.6 % (0-4.5); HEMATOCRIT 24.7 % (32.4-45.2); HEMOGLOBIN 7.6 GM/dL (10.7-15.3); LYMPH % 51.5 % (8-40); MCH 22.8 pg (25.7-33.7); MCHC 30.8 g/dl (32.0-36.0); MEAN CELL VOLUME 73.9 fl (80-96); MONO % 10.5 % (3.8-10.2); NEUT % 34.5 % (42.8-82.8); PLATELET COUNT 361 10^3/uL (134-434); RBC 3.34 M/mm3 (3.60-5.2); RDW 19.7 % (11.6-15.6)
[2022-08-12 08:08] LABS: BLOOD UREA NITROGEN 9.8 mg/dL (7-18); CALCIUM 8.6 mg/dL (8.5-10.1)
[2022-08-12 08:11] LABS: CREATININE 0.6 mg/dL (0.55-1.3); TOT PROT 6.5 g/dl (6.4-8.2)
[2022-08-12 08:13] LABS: BILIRUBIN,TOTAL 0.6 mg/dL (0.2-1)
[2022-08-12 09:30] VITALS: BP 114/58; PULSE 71; RESP 18; TEMP 98.2
[2022-08-12] MEDS ORDERED: TOPIRAMATE 25 MG TABLET PO SCH (10:00)
[2022-08-12] MEDS ORDERED: CYANOCOBALAMIN (VITAMIN B-12) 1000 MCG/1 ML VIAL IM SCH (10:00)
[2022-08-12] MEDS ORDERED: PRAMIPEXOLE DIHYDROCHLORIDE 0.25 MG TABLET PO SCH (22:00)
== END 2022-08-12 18:27 | disposition home or self-care (01) ==
LOC: JER 16:41 → JERBED 22:00 → J4W 08-12 01:53
PROVIDERS: ADMIT Internal Medicine
PROC: 3E033GC Introduction of Other Therapeutic Substance into Peripheral Vein, Percutaneous Approach (ICD-10-PCS; principal; 2022-08-10)
PROC: 3E0337Z Introduction of Electrolytic and Water Balance Substance into Peripheral Vein, Percutaneous Approach (ICD-10-PCS; 2022-08-10)
PROC: 3E013GC Introduction of Other Therapeutic Substance into Subcutaneous Tissue, Percutaneous Approach (ICD-10-PCS; 2022-08-10)
PROC: 3E023GC Introduction of Other Therapeutic Substance into Muscle, Percutaneous Approach (ICD-10-PCS; 2022-08-10)
DX: G43.111 Migraine with aura, intractable, with status migrainosus (principal); G93.2 Benign intracranial hypertension; I10 Essential (primary) hypertension; R55 Syncope and collapse; E66.9 Obesity, unspecified; Z68.32 Body mass index [BMI] 32.0-32.9, adult; G25.81 Restless legs syndrome; D50.9 Iron deficiency anemia, unspecified; Z98.84 Bariatric surgery status; Z86.16 Personal history of COVID-19
CPT/HCPCS: 0241U-QW; 36415; 70450-TC; 70551-TC; 76856-TC; 80053; 80061; 80307; 82272; 82607; 82728; 83540; 83550; 83735; 84100; 84443; 84466; 84484; 84703; 85025; 85045; 85610; 87086; 93005; 93010; 93306-TC; 93880-TC; 96361; 96372; 96374; 96375; 96376; 99285-25; G0378